=== PATIENT | female | born 2000 | race Hispanic/Latino ===

== ENCOUNTER 2019-01-18 10:30 | Emergency (ER) | payer SELFPAY ==
[2019-01-18 10:50] VITALS: BP 119/71
== END 2019-01-18 11:00 | disposition left against medical advice (07) ==
LOC: ED 10:30
DX: R51 Headache (principal); R07.89 Other chest pain; Z53.21 Procedure and treatment not carried out due to patient leaving prior to being seen by health care provider
CPT/HCPCS: 93005; 93010

== ENCOUNTER 2019-01-27 23:33 | Emergency (ER) | payer MEDICAID ==
[2019-01-28 00:15] LABS: Basophils # (Auto) 0.1 K/mm3 (0.0-0.1); Basophils % (Auto) 1.3 % (0.0-1.8); Eosinophils # (Auto) 0.3 K/mm3 (0.0-0.4); Eosinophils % (Auto) 3.5 % (0.0-4.3); Hematocrit 37.7 % (30.3-42.9); Hemoglobin 12.7 gm/dl (10.1-14.3); Lymphocytes # (Auto) 2.6 K/mm3 (1.2-5.4); Lymphocytes % (Auto) 28.6 % (13.4-35.0); Mean Corpuscular HGB Conc 34 % (30-34); Mean Corpuscular Volume 90 fl (79-97); Monocytes # (Auto) 0.9 K/mm3 (0.0-0.8); Monocytes % (Auto) 9.6 % (0.0-7.3); Platelet Count 338 K/mm3 (140-440); Red Blood Count 4.19 M/mm3 (3.65-5.03); Red Cell Distribution Width 14.5 % (13.2-15.2)
[2019-01-28 00:36] LABS: BUN/Creatinine Ratio 17; Blood Urea Nitrogen 12 mg/dL (7-17); Calcium 9.2 mg/dL (8.4-10.2); Hemolysis Index 17
--- NOTE | 2019-01-28 00:44 | Emergency Department Report ---
ED Medical Clearance HPI - General Chief complaint: Medical Clearance Stated complaint: MEDICAL CLEARANCE Time Seen by Provider: 01/28/19 00:29 Source: patient Mode of arrival: Ambulatory Limitations: No Limitations - History of Present Illness Initial comments: This is a pleasant 18-year-old female. The patient is not known to this provider previously. The patient is sent to the emergency room by local facility for medical clearance. 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 She is currently on naltrexone therapy. Apparently, a screening urine test obtained as an outpatient demonstrated presence of marijuana. The patient has no complaints at this time. She is not homicidal or suicidal. She endorses no urinary symptoms. MD Complaint: medical clearance request Reason for Medical Clearance: laboratory abnormality Alledged Intoxication: No Compliant with Home Medications: Yes Traumatic Symptoms: denies traumatic injury Treatments Prior to Arrival: none Allergies/Adverse reactions: Allergies Allergy/AdvReac Type Severity Reaction Status Date / Time No Known Allergies Allergy Unverified 01/18/19 10:41 ED Review of Systems ROS: Stated complaint: MEDICAL CLEARANCE Other details as noted in HPI Comment: All other systems reviewed and negative ED Past Medical Hx - Past Medical History Previous Medical History?: No - Surgical History Past Surgical History?: Yes Additional Surgical History: right foot, tonsillectomy - Social History Smoking Status: Current Every Day Smoker ED Physical Exam - General Limitations: No Limitations General appearance: alert, in no apparent distress - Head Head exam: Present: atraumatic, normocephalic - Eye Eye exam: Present: normal appearance, EOMI. Absent: nystagmus - ENT ENT exam: Present: normal exam, normal orophraynx, mucous membranes moist, normal external ear exam - Neck Neck exam: Present: normal inspection, full ROM. Absent: tenderness, meningismus - Respiratory Respiratory exam: Present: normal lung sounds bilaterally. Absent: respiratory distress - Cardiovascular Cardiovascular Exam: Present: regular rate, normal rhythm, normal heart sounds, systolic murmur (2/6 systolic murmur heard at left and right intercostal space.). Absent: bradycardia, tachycardia, irregular rhythm, diastolic murmur, rubs, gallop - GI/Abdominal GI/Abdominal exam: Present: soft. Absent: distended, tenderness, guarding, rebound, rigid, pulsatile mass - Extremities Exam Extremities exam: Present: normal inspection, full ROM, other (2+ pulses noted in the bilateral upper, lower extremities. Compartments soft. No long bony tenderness. The pelvis is stable.). Absent: pedal edema, joint swelling, calf tenderness - Back Exam Back exam: Present: normal inspection, full ROM. Absent: tenderness, CVA tenderness (R), CVA tenderness (L), paraspinal tenderness, vertebral tenderness - Neurological Exam Neurological exam: Present: alert, oriented X3, normal gait, other (Extraocular movements intact. Tongue midline. No facial droop. Facial sensation intact to light touch in the V1, V2, V3 distribution bilaterally. 5 and 5 strength in 4 extremities.. Sensation is intact to light touch in 4 extremities.). Absent: motor sensory deficit - Psychiatric Psychiatric exam: Present: normal affect, normal mood. Absent: homicidal ideation, suicidal ideation - Skin Skin exam: Present: warm, dry, intact, normal color. Absent: rash ED Course Vital Signs 01/27/19 23:52 Temperature 97.9 F Pulse Rate 101 H Respiratory 20 Rate Blood Pressure 119/68 O2 Sat by Pulse 98 Oximetry ED Medical Decision Making - Lab Data Result diagrams: 01/28/19 00:01 01/28/19 00:01 Vital Signs 01/27/19 23:52 Temperature 97.9 F Pulse Rate 101 H Respiratory 20 Rate Blood Pressure 119/68 O2 Sat by Pulse 98 Oximetry Lab Results 01/28/19 01/28/19 01/28/19 Range/Units 00:01 00:01 00:01 WBC 9.1 (4.5-11.0) K/mm3 RBC 4.19 (3.65-5.03) M/mm3 Hgb 12.7 (10.1-14.3) gm/dl Hct 37.7 (30.3-42.9) % MCV 90 (79-97) fl MCH 30 (28-32) pg MCHC 34 (30-34) % RDW 14.5 (13.2-15.2) % Plt Count 338 (140-440) K/mm3 Lymph % (Auto) 28.6 (13.4-35.0) % Crawford % (Auto) 9.6 H (0.0-7.3) % Eos % (Auto) 3.5 (0.0-4.3) % Baso % (Auto) 1.3 (0.0-1.8) % Lymph # 2.6 (1.2-5.4) K/mm3 Crawford # 0.9 H (0.0-0.8) K/mm3 Eos # 0.3 (0.0-0.4) K/mm3 Baso # 0.1 (0.0-0.1) K/mm3 Seg Neutrophils % 57.0 (40.0-70.0) % Seg Neutrophils # 5.2 (1.8-7.7) K/mm3 Sodium 139 (137-145) mmol/L Potassium 3.9 (3.6-5.0) mmol/L Chloride 101.4 (98-107) mmol/L Carbon Dioxide 24 (22-30) mmol/L Anion Gap 18 mmol/L BUN 12 (7-17) mg/dL Creatinine 0.7 (0.7-1.2) mg/dL Estimated GFR > 60 ml/min BUN/Creatinine Ratio 17 % Glucose 134 H (65-100) mg/dL Calcium 9.2 (8.4-10.2) mg/dL HCG, Qual Negative (Negative) Lab Results 01/28/19 01/28/19 01/28/19 Range/Units 00:01 00:01 00:01 WBC (4.5-11.0) K/mm3 RBC (3.65-5.03) M/mm3 Hgb (10.1-14.3) gm/dl Hct (30.3-42.9) % MCV (79-97) fl MCH (28-32) pg MCHC (30-34) % RDW (13.2-15.2) % Plt Count (140-440) K/mm3 Lymph % (Auto) (13.4-35.0) % Crawford % (Auto) (0.0-7.3) % Eos % (Auto) (0.0-4.3) % Baso % (Auto) (0.0-1.8) % Lymph # (1.2-5.4) K/mm3 Crawford # (0.0-0.8) K/mm3 Eos # (0.0-0.4) K/mm3 Baso # (0.0-0.1) K/mm3 Seg Neutrophils % (40.0-70.0) % Seg Neutrophils # (1.8-7.7) K/mm3 Sodium 139 (137-145) mmol/L Potassium 3.9 (3.6-5.0) mmol/L Chloride 101.4 (98-107) mmol/L Carbon Dioxide 24 (22-30) mmol/L Anion Gap 18 mmol/L BUN 12 (7-17) mg/dL Creatinine 0.7 (0.7-1.2) mg/dL Estimated GFR > 60 ml/min BUN/Creatinine Ratio 17 % Glucose 134 H (65-100) mg/dL Calcium 9.2 (8.4-10.2) mg/dL HCG, Qual (Negative) Salicylates < 0.3 L (2.8-20.0) mg/dL Acetaminophen < 5.0 L (10.0-30.0) ug/mL Plasma/Serum Alcohol (0-0.07) % 01/28/19 01/28/19 01/28/19 Range/Units 00:01 00:01 00:01 WBC 9.1 (4.5-11.0) K/mm3 RBC 4.19 (3.65-5.03) M/mm3 Hgb 12.7 (10.1-14.3) gm/dl Hct 37.7 (30.3-42.9) % MCV 90 (79-97) fl MCH 30 (28-32) pg MCHC 34 (30-34) % RDW 14.5 (13.2-15.2) % Plt Count 338 (140-440) K/mm3 Lymph % (Auto) 28.6 (13.4-35.0) % Crawford % (Auto) 9.6 H (0.0-7.3) % Eos % (Auto) 3.5 (0.0-4.3) % Baso % (Auto) 1.3 (0.0-1.8) % Lymph # 2.6 (1.2-5.4) K/mm3 Crawford # 0.9 H (0.0-0.8) K/mm3 Eos # 0.3 (0.0-0.4) K/mm3 Baso # 0.1 (0.0-0.1) K/mm3 Seg Neutrophils % 57.0 (40.0-70.0) % Seg Neutrophils # 5.2 (1.8-7.7) K/mm3 Sodium (137-145) mmol/L Potassium (3.6-5.0) mmol/L Chloride (98-107) mmol/L Carbon Dioxide (22-30) mmol/L Anion Gap mmol/L BUN (7-17) mg/dL Creatinine (0.7-1.2) mg/dL Estimated GFR ml/min BUN/Creatinine Ratio % Glucose (65-100) mg/dL Calcium (8.4-10.2) mg/dL HCG, Qual Negative (Negative) Salicylates (2.8-20.0) mg/dL Acetaminophen (10.0-30.0) ug/mL Plasma/Serum Alcohol < 0.01 (0-0.07) % - Medical Decision Making Differential diagnosis, including but not limited to: Routine medical clearance Assessment and plan: 18-year-old female who endorses no medical complaints, sent to the emergency room for medical clearance for reported presence of cannabinoids metabolites in her urine. The patient is afebrile with reassuring vital signs and her tachycardia has resolved. Her physical examination is unremarkable. She is resting comfortably in her stretcher and in no acute distress. She is clinically sober at this time. She has endorsed no urinary symptoms, therefore, a urinalysis is not medically indicated at this time. The patient is not homicidal or suicidal, and she does not meet 1013 criteria. The patient does not appear to have an emergent medical condition at this time. The patient does not appear to have an emergent psychiatric condition at this time. The patient is medically suitable to follow-up as an outpatient for detox therapy. ED Disposition Clinical Impression: General medical exam Disposition: DC-01 TO HOME OR SELFCARE Is pt being admited?: No Does the pt Need Aspirin: No Condition: Stable Additional Instructions: Please follow up with the primary care doctor within the next 4-6 weeks. Please continue current outpatient medications. Please return to the emergency room right away with new, worsening or different symptoms not present on the initial emergency room evaluation. Patient currently does not appear to have an immediate medical contraindication to outpatient detox therapy. Referrals: [facility] [Provider Group] - 3-5 Days
[2019-01-28 01:34] VITALS: BP 116/70
== END 2019-01-28 01:35 | disposition home or self-care (01) ==
LOC: ED 23:33
DX: F12.90 Cannabis use, unspecified, uncomplicated (principal); F17.200 Nicotine dependence, unspecified, uncomplicated; Z90.49 Acquired absence of other specified parts of digestive tract; Z98.890 Other specified postprocedural states
CPT/HCPCS: 36415; 80048; 84703; 85025; 99283; G0480; 80320